=== PATIENT | female | born 1990 | race Caucasian/White ===

== ENCOUNTER 2017-02-13 02:55 | Emergency (ER) | payer BC ==
[2017-02-13 03:09] LABS: Clarity Slightly Cloudy (Clear)
[2017-02-13] MEDS ORDERED: Ondansetron ODT 4 MG TAB ONE (03:10)
[2017-02-13 03:13] LABS: Protein, Urine (Dipstick) Negative (Neg-Trace)
[2017-02-13 03:14] LABS: Specific Gravity, Urine 1.015 (1.002-1.036)
[2017-02-13 03:16] LABS: Bilirubin Negative (Negative)
[2017-02-13 03:29] LABS: Squamous Epithelial 0-3 HPF (0-3)
[2017-02-13 03:31] LABS: Bacteria/HPF 2+ HPF (None Seen)
[2017-02-13 03:37] LABS: Pregnancy Test - Urine (BHCG) Negative (Negative)
[2017-02-13 03:38] LABS: Pregu Control Background? CLEAR/WHITE (CLR/WHITE); Pregu Control Bar Appear? YES (CONTROL BAR); Specific Gravity 1.015 (1.002-1.036)
[2017-02-13] MEDS ORDERED: Acetaminophen 500 MG TAB ONE (03:48)
[2017-02-13] MEDS ORDERED: Nitrofurantoin Monohyd/M-Cryst 100 MG CAP PO SCH (04:00)
== END 2017-02-13 03:47 | disposition home or self-care (01) ==
LOC: BURERS 02:55
DX: N12 Tubulo-interstitial nephritis, not specified as acute or chronic (principal)
CPT/HCPCS: 81003; 81015; 81025; 99283; Q0162